=== PATIENT | female | born 1995 | race Caucasian/White ===

== ENCOUNTER 2020-08-12 19:01 | Emergency (ER) | payer OTHER | END 2020-08-12 19:53 | disposition left against medical advice (07) | LOC: ER1 19:01 | DX: Z04.3 Encounter for examination and observation following other accident (principal); Z53.21 Procedure and treatment not carried out due to patient leaving prior to being seen by health care provider ==

== ENCOUNTER 2022-03-20 00:31 | Inpatient (IN) | payer OTHER ==
[~2022-03-20] VITALS: Ht 147.3 cm; Wt 59.0 kg
[2022-03-20 01:29] LABS: BUN/CREATININE RATIO 17 (0-10)
[2022-03-20 01:32] LABS: HEMOGLOBIN 12.9 gm/dl (12.3-15.3); RED BLOOD COUNT 4.35 M/UL (4.00-5.10); WHITE BLOOD COUNT 7.4 K/UL (4.5-11.0)
[2022-03-20 13:40] LABS: BUN/CREATININE RATIO 16 (0-10)
[2022-03-21 03:43] LABS: HEMOGLOBIN 13.4 gm/dl (12.3-15.3); RED BLOOD COUNT 4.53 M/UL (4.00-5.10)
[2022-03-21 03:48] LABS: WHITE BLOOD COUNT 5.3 K/UL (4.5-11.0)
[2022-03-21 04:31] LABS: BUN/CREATININE RATIO 10 (0-10)
== END 2022-03-21 16:20 | DRG 917 ==
LOC: ER1 00:31 → CDU 03:35 → MED SURG 4 03:35 → CCU 03:35 → MED SURG 4 22:18
PROVIDERS: Emergency Medicine; Internal Medicine; ADMIT Internal Medicine
DX: T42.6X2A Poisoning by other antiepileptic and sedative-hypnotic drugs, intentional self-harm, initial encounter (principal); G92.8 Other toxic encephalopathy; U07.1 COVID-19; E87.2 Acidosis; F15.10 Other stimulant abuse, uncomplicated; F12.10 Cannabis abuse, uncomplicated; J44.9 Chronic obstructive pulmonary disease, unspecified; E87.6 Hypokalemia; F41.9 Anxiety disorder, unspecified; E86.1 Hypovolemia; F17.210 Nicotine dependence, cigarettes, uncomplicated; Z98.891 History of uterine scar from previous surgery; Z81.8 Family history of other mental and behavioral disorders
CPT/HCPCS: 36415; 51701; 70450; 71045; 80053; 80307; 81001; 83735; 84703; 85025; 93005; 96374; 96375; 99285; G0480; J1650; J2250; J3475; J3480; U0002